=== PATIENT | male | born 1980 | race Caucasian/White ===

== ENCOUNTER 2017-11-27 08:44 | Day surgery (SDC) | payer OTHER ==
[2017-11-20 09:04] VITALS: BMI 31.8
[2017-11-27] MEDS ORDERED: ROPIVACAINE HCL 0.5% 30ML VIAL ONE (08:53)
[2017-11-27] MEDS ORDERED: MIDAZOLAM HCL 2 MG/2 ML SINGLE DOSE VIAL ONE (09:20)
[2017-11-27] MEDS ORDERED: SEVOFLURANE 250 ML BTL ONE (09:44)
[2017-11-27] MEDS ORDERED: ceFAZolin SODIUM 1 GM VIAL ONE (09:47)
[2017-11-27] MEDS ORDERED: GUM MASTIC/STORAX/MSAL/ALCOHOL 1 DRP DROPSBTL MC ONE (10:35)
[2017-11-27] MEDS ORDERED: ONDANSETRON 4 MG/2 ML VIAL ONE (11:14)
[2017-11-27] MEDS ORDERED: oxyCODONE HCL 5 MG TABLET PO PRN (11:17)
[2017-11-27] MEDS ORDERED: ONDANSETRON 4 MG/2 ML VIAL IVPUSH PRN (11:17)
[2017-11-27] MEDS ORDERED: ONDANSETRON 4 MG/2 ML VIAL IVPUSH ONE (11:17)
[2017-11-27] MEDS ORDERED: LACTATED RINGERS SOLUTION 1,000 ML IV SCH (11:30)
[2017-11-27 12:03] VITALS: TEMP 97.6
[2017-11-27 12:42] VITALS: BP 121/77; PULSE 74
--- NOTE | 2017-11-27 13:41 | OP ---
DATE OF OPERATION: 11/27/2017 PREOPERATIVE DIAGNOSES: 1. Right triangular fibrocartilage complex tear. 2. Right extensor carpi ulnaris tendinosis. OPERATIVE PROCEDURES: 1. Right wrist operative arthroscopy with debridement of triangular fibrocartilage complex. 2. Right wrist open extensor carpi ulnaris tenolysis/decompression and debridement. SURGEON: Moises Nieves MD GALVANOMETER ASSEMBLER: PATRIA Tarango ANESTHESIA: General. COMPLICATIONS: None. ESTIMATED BLOOD LOSS: Minimal. INDICATIONS FOR PROCEDURE: The patient is a 37-year-old male with the above findings indicated for operative treatment. Risks, benefits and alternatives were discussed with the patient at length. Proper informed consent was obtained. PROCEDURE: After proper identification of the patient and correct operative site, the patient was brought to the operating room and placed supine on the operating table. All prominences well padded. General anesthesia was provided by the anesthesiologist adequate for procedure. A timeout procedure was performed. Intravenous antibiotics were given. The right upper extremity was prepped and draped in the usual sterile fashion. A well-padded tourniquet was placed over the sterile prep. Esmarch bandage used to exsanguinate right upper extremity. Tourniquet was inflated to 250 mmHg. Wrist arthroscopy tower was used with 10 pounds of in-line traction and all points of contact well padded. The 3-4 and 4-5 portals were established with skin incision only and blunt dissection down to the joint capsule. A 2.7-mm, gravity-inflow arthroscope was used throughout the procedure. Radiocarpal joint was observed and there was mild chondromalacia of the proximal radial aspect of the lunate. Otherwise, there was no significant chondromalacia. Volar radial collateral ligaments were intact. Scapholunate was intact. There was a little bit of fraying in the most proximal portion. This was debrided with a mechanical shaver. No evidence of instability of the scapholunate interval. Moderate dorsal synovitis was noted, especially ulnarly, and this was debrided with mechanical shaver. There was fraying of the TFCC and this was debrided. This was especially ulnarly. A small, full-thickness tear of the TFCC at its junction with the dorsal radial ulnar ligament and the dorsal wrist capsule was found. This was debrided down to a healthy edge in anticipation of possible healing. At this point, I decided not to do a repair, as the morphology of the tear looked like it should be able to heal or be stable without repair. This area was debrided extensively. Arthroscope was then removed. An incision was made over the extensor carpi ulnaris. Incision was taken sharply through skin subcutaneous tissues. Ulnar sensory nerve was carefully identified and protected. The extensor carpi ulnaris sheath was opened both proximal and distal to the ulnar styloid and the tendon was found to be adhered within this sheath with moderate tendinosis. This was debrided, and a tenolysis was performed, and the tendon was then able to have excursion proximally and distally. The retinaculum over the distal aspect of the ulna was left intact to prevent subluxation. The wound was irrigated with copious amounts of normal saline and repaired with 4-0 Vicryl and 4-0 Monocryl suture. Steri-Strips and sterile dressings were applied. The patient was reversed from anesthesia and brought to the recovery room in stable condition. Breezy Shelton, the facility assistant, was integral throughout the procedure. The procedure could not have been performed without a skilled operative facility assistant. MOISES NIEVES M.D. [id number]
== END 2017-11-27 12:45 | disposition home or self-care (01) ==
LOC: FASU 08:44
PROVIDERS: ATTEND Orthopaedic Surgery Hand Surgery
PROC: 0LN50ZZ Release Right Lower Arm and Wrist Tendon, Open Approach (ICD-10-PCS; 2017-11-27)
PROC: 0RBN4ZZ Excision of Right Wrist Joint, Percutaneous Endoscopic Approach (ICD-10-PCS; principal; 2017-11-27 10:30)
DX: S63.591A Other specified sprain of right wrist, initial encounter (principal); M65.841 Other synovitis and tenosynovitis, right hand; X58.XXXA Exposure to other specified factors, initial encounter; Y93.89 Activity, other specified; Y92.89 Other specified places as the place of occurrence of the external cause
CPT/HCPCS: 94760